=== PATIENT | female | born 1960 | race American Indian/Alaskan Native ===

== ENCOUNTER 2022-04-28 08:17 | Outpatient (CLI) | payer BC ==
--- NOTE | 2022-04-28 10:58 | Fluoroscopy Report ---
Barium enema Indication: Z12.11 COLON CANCER SCREENING. Technique: Double contrast barium technique utilized to evaluate the colon. Findings: To begin the exam, a rectal catheter was placed and balloon insufflated. No mucosal irregularity, mass, mass effect, or critical stenosis. No significant diverticular disea se. Impression: Unremarkable exam. Fluoroscopic time: 4.2 minutes Number of fluoroscopic images: 31 Signer Name: Humberto Salinas MD Signed: 04/28/2022 10:53 AM Workstation Name: [id number]
== END 2022-04-28 08:18 | disposition home or self-care (01) ==
LOC: FLUORO 08:17
PROVIDERS: ATTEND Internal Medicine Gastroenterology
DX: Z12.11 Encounter for screening for malignant neoplasm of colon (principal)
CPT/HCPCS: 74280